=== PATIENT | female | born 1990 | race Caucasian/White ===

== ENCOUNTER 2021-06-26 09:07 | Inpatient (IN) | payer MEDICAID, SELFPAY ==
[2021-06-26 09:07] VITALS: BP 141/98; PULSE 62; RESP 16; TEMP 36.2; O2SAT 100; BMI 22.6
--- NOTE | 2021-06-26 09:28 | EX.ED.DYSGE1 ---
HPI <WARD Huerta - Last Filed: 06/26/21 11:53> History of Present Illness Chief Complaint: Substance Abuse Narrative Narrative: 30-year-old female with history of anxiety, depression, history of substance abuse. Patient states that she would like to be admitted to help get off of fentanyl. Patient has been using fentanyl since November 2020, patient states that she has experimented with meth, however she has been mainly using fentanyl lately. Patient does smoke marijuana intermittently, denies any alcohol use. Patient denies any suicidal, homicidal ideation, patient is here for evaluation. Patient complains of generalized abdominal cramping, muscle aches, nausea, vomiting, diarrhea. Patient states that she has horrific acid reflux secondary to vomiting acid. Patient denies any fevers or chills. Denies any blood in stool or vomit. PFSH <WARD Huerta - Last Filed: 06/26/21 11:53> [facility] Medical History (Updated 07/01/21 @ 07:[address] Gerhard Harris, DO) Fentanyl dependence Hx MRSA infection Home Medications Latuda 20 mg PO DAILY 06/26/21 [History Last Taken Unknown] Allergy/AdvReac Type Severity Reaction Status Date / Time prednisone Allergy Other Verified 06/26/21 13:14 Family History (Updated 06/26/21 @ 14:46 by Bianka Hull NP, MARKSMANSHIP INSTRUCTOR-C) Father COPD (chronic obstructive pulmonary disease) Mental health disorder Mother Mental health disorder Surgical History (Updated 06/26/21 @ 14:47 by Bianka Hull NP, MARKSMANSHIP INSTRUCTOR-C) H/O tubal ligation History of tonsillectomy Social History (Updated 06/26/21 @ 14:47 by Bianka Hull NP, MARKSMANSHIP INSTRUCTOR-C) Smoking Status: Current every day smoker tobacco type: cigarettes alcohol intake: never substance use type: other details: fentanyl ROS <WARD Huerta - Last Filed: 06/26/21 11:53> ROS ED ROS Narrative Constitutional: Negative for fever, weight loss, weakness. Positive for chills Eyes: Negative for vision loss, vision change, double vision ENT: Negative for any sore throat, ear pain, congestion Cardiovascular: Negative for any chest pain, tightness, palpitations, racing heartbeat Respiratory: Negative for any cough, sputum production, hemoptysis, shortness of breath, shortness of breath on exertion, orthopnea Gastrointestinal: Negative for any constipation, blood in stool, blood in vomit. Positive for abdominal pain, nausea vomiting, diarrhea : Negative for any urinary frequency, incontinence, dysuria, retention, blood in urine Muscle skeletal: Negative for any muscle joint pain, stiffness, arthralgias, neck pain, back pain. Positive for generalized malaise Neurological: Negative for any headache, dizziness, syncope, numbness or tingling Skin: Negative for any rashes, lumps, itching, abrasions, lacerations Psychiatric: Negative for any depression, anxiety, stress, suicidal ideation, homicidal ideation Hematologic: Negative for any easy bruising, excessive bruising, easy bleeding Allergies: Negative for any eczema, hives, rash EXAM <WARD Huerta - Last Filed: 06/26/21 11:53> Physical Exam Narrative Exam Narrative: Vital signs reviewed. Patient is alert and oriented x4, patient appears nontoxic, last time patient used was 4 PM yesterday. Patient is cooperative at this time. HEET: Head normocephalic atraumatic, TMs clear bilaterally. Posterior pharynx is clear, dry mucous membranes. Nares clear bilaterally. Neck: Supple with no lymphadenopathy or tenderness. No signs of meningismus, negative jolt sign. Cardiac: Regular rate and rhythm no murmurs gallops or rubs, equal peripheral pulses bilaterally. Respiratory: Lungs clear to auscultation bilaterally. No chest tenderness. Abdomen: Soft, nontender, nondistended. No abdominal bruit or pulsatile masses. No hepatosplenomegaly Extremities: No peripheral edema, no signs of gross trauma or deformity. Active full range of motion of all extremities. Neuro: Cranial nerves II through XII intact, no focal neurological deficits. Skin: Clean dry and intact with no rash, purpura, petechiae, vesicles or pustules. Patient does have multiple red amaro on her face from picking secondary to drug abuse. Backslash flank: No CVA tenderness, no midline spinal tenderness, no deformity. Psych: Normal mood and affect. No SI, HI or acute psychosis. Const Vital Signs: 06/26/21 09:07 06/26/21 11:12 Temperature 97.2 F L Temperature Source Temporal Pulse Rate 62 Respiratory Rate 16 14 Blood Pressure 141/98 H Blood Pressure Mean 112 Pulse Ox 100 Oxygen Delivery Method Room Air Positive cachectic and unkempt General Appearance ED: unkempt and cachectic Nutritional Appearance: cachectic Psych Appearance: unkempt <Dr. Gerhard Harris DO - Last Filed: 07/01/21 07:47> Physical Exam Const Vital Signs: 06/26/21 09:07 06/26/21 11:12 Temperature 97.2 F L Temperature Source Temporal Pulse Rate 62 Respiratory Rate 16 14 Blood Pressure 141/98 H Blood Pressure Mean 112 Pulse Ox 100 Oxygen Delivery Method Room Air MDM <Jf ValenzuelaWARD wilkerson - Last Filed: 06/26/21 11:53> [facility] Narrative Medical decision making narrative: Patient appears well, patient appears nontoxic, vital signs are stable. Patient presents emergency department for admission for opiate dependence. Patient did receive basic laboratory values, patient CBC, chemistries were grossly unremarkable. Patient's urinalysis was unremarkable. Patient did receive IV fluids, IV Zofran x2 as well as a GI cocktail for her acid reflux. I did talk to the hospitalist, the patient be admitted for opiate dependence. Patient remained stable, vital signs are stable. Patient is stable for admission. Lab Data Attestation: I reviewed the patient's lab results. Labs: Laboratory Results - last 24 hr 06/26/21 06/26/21 06/26/21 09:50 09:50 09:50 WBC 5.1 RBC 5.15 Hgb 15.5 H Hct 44.2 MCV 85.8 MCH 30.1 MCHC 35.1 RDW Std Deviation 39.8 RDW Coeff of Leah 12.7 Plt Count 285 MPV 10.6 Immature Gran % (Auto) 0.400 Neut % (Auto) 85.4 H Lymph % (Auto) 12.6 L [place] % (Auto) 1.6 Eos % (Auto) 0.0 Baso % (Auto) 0.0 Absolute Neuts (auto) 4.4 Absolute Lymphs (auto) 0.65 L Nucleated RBC % 0 Sodium 137 Potassium 3.5 Chloride 103 Carbon Dioxide 29.0 Anion Gap 5 BUN 9 Creatinine 0.59 Estim Creat Clear Calc 105.21 Est GFR (MDRD) Af Amer 154 Est GFR (MDRD) Non-Af 127 BUN/Creatinine Ratio 15.3 Glucose 139 H Calcium 9.8 Lipase 80 Urine Color Urine Clarity Urine pH Ur Specific [place] Urine Protein Urine Glucose (UA) Urine Ketones Urine Occult Blood Urine Nitrite Urine Bilirubin Urine Urobilinogen Ur Leukocyte Esterase Urine RBC Urine WBC Ur Squamous Epith Cells Amorphous Sediment Urine Bacteria Urine Mucus Urine Test Urine Opiates Screen Urine Methadone Screen Ur Barbiturates Screen Ur Phencyclidine Scrn Ur Amphetamines Screen MDMA (Ecstasy) Screen U Benzodiazepines Scrn Urine Cocaine Screen U Cannabinoids Screen Ur Drug Screen Comment Ethyl Alcohol < 3.0 06/26/21 06/26/21 11:35 11:35 WBC RBC Hgb Hct MCV MCH MCHC RDW Std Deviation RDW Coeff of Leah Plt Count MPV Immature Gran % (Auto) Neut % (Auto) Lymph % (Auto) [place] % (Auto) Eos % (Auto) Baso % (Auto) Absolute Neuts (auto) Absolute Lymphs (auto) Nucleated RBC % Sodium Potassium Chloride Carbon Dioxide Anion Gap BUN Creatinine Estim Creat Clear Calc Est GFR (MDRD) Af Amer Est GFR (MDRD) Non-Af BUN/Creatinine Ratio Glucose Calcium Lipase Urine Color Yellow Urine Clarity Cloudy Urine pH 8.0 Ur Specific [place] 1.015 Urine Protein Negative Urine Glucose (UA) Normal Urine Ketones 50 H Urine Occult Blood Negative Urine Nitrite Negative Urine Bilirubin Negative Urine Urobilinogen Normal Ur Leukocyte Esterase 25 H Urine RBC 0 SEEN Urine WBC 0-5 SEEN Ur Squamous Epith Cells 0 SEEN Amorphous Sediment 2+ Urine Bacteria 0 SEEN Urine Mucus 0 SEEN Urine Test Negative Urine Opiates Screen NEGATIVE Urine Methadone Screen NEGATIVE Ur Barbiturates Screen NEGATIVE Ur Phencyclidine Scrn NEGATIVE Ur Amphetamines Screen POSITIVE H MDMA (Ecstasy) Screen NEGATIVE U Benzodiazepines Scrn NEGATIVE Urine Cocaine Screen NEGATIVE U Cannabinoids Screen POSITIVE H Ur Drug Screen Comment Ethyl Alcohol <Dr. Gerhard Harris, DO - Last Filed: 07/01/21 07:47> [facility] MDM Narrative Medical decision making narrative: Attending note: Patient seen and evaluated with bead machine operator. I perform my own [id number] evaluation. I agree with the plan of work-up. Presents for detoxification from fentanyl. Has been using daily since November. Prior to that using methamphetamines. She snorts this. Also intermittent marijuana use. Her last use of all 3 was yesterday. Vomiting diarrhea since yesterday. Abdominal cramping. Has not sought help for detox in the past. Denies alcohol use. Denies suicidal homicidal ideations. Exam mild dry mucosal membranes abdomen soft nonsurgical. Patient looking for assistance for detox. Abdominal labs are all normal alcohol negative tox screen pending. She was treated with IV fluids GI cocktail per her request Zofran for nausea. We will plan to discuss with hospitalist service for admission. Abdominal labs are on normal. Tox urine positive for meth and THC. Alcohol negative. Patient admitted to hospital service. Lab Data Labs: Laboratory Results - last 24 hr 06/26/21 06/26/21 06/26/21 09:50 09:50 09:50 WBC 5.1 RBC 5.15 Hgb 15.5 H Hct 44.2 MCV 85.8 MCH 30.1 MCHC 35.1 RDW Std Deviation 39.8 RDW Coeff of Leah 12.7 Plt Count 285 MPV 10.6 Immature Gran % (Auto) 0.400 Neut % (Auto) 85.4 H Lymph % (Auto) 12.6 L [place] % (Auto) 1.6 Eos % (Auto) 0.0 Baso % (Auto) 0.0 Absolute Neuts (auto) 4.4 Absolute Lymphs (auto) 0.65 L Nucleated RBC % 0 Sodium 137 Potassium 3.5 Chloride 103 Carbon Dioxide 29.0 Anion Gap 5 BUN 9 Creatinine 0.59 Estim Creat Clear Calc 105.21 Est GFR (MDRD) Af Amer 154 Est GFR (MDRD) Non-Af 127 BUN/Creatinine Ratio 15.3 Glucose 139 H Calcium 9.8 Lipase 80 Urine Color Urine Clarity Urine pH Ur Specific [place] Urine Protein Urine Glucose (UA) Urine Ketones Urine Occult Blood Urine Nitrite Urine Bilirubin Urine Urobilinogen Ur Leukocyte Esterase Urine RBC Urine WBC Ur Squamous Epith Cells Amorphous Sediment Urine Bacteria Urine Mucus Urine Test Urine Opiates Screen Urine Methadone Screen Ur Barbiturates Screen Ur Phencyclidine Scrn Ur Amphetamines Screen MDMA (Ecstasy) Screen U Benzodiazepines Scrn Urine Cocaine Screen U Cannabinoids Screen Ur Drug Screen Comment Ethyl Alcohol < 3.0 06/26/21 06/26/21 11:35 11:35 WBC RBC Hgb Hct MCV MCH MCHC RDW Std Deviation RDW Coeff of Leah Plt Count MPV Immature Gran % (Auto) Neut % (Auto) Lymph % (Auto) [place] % (Auto) Eos % (Auto) Baso % (Auto) Absolute Neuts (auto) Absolute Lymphs (auto) Nucleated RBC % Sodium Potassium Chloride Carbon Dioxide Anion Gap BUN Creatinine Estim Creat Clear Calc Est GFR (MDRD) Af Amer Est GFR (MDRD) Non-Af BUN/Creatinine Ratio Glucose Calcium Lipase Urine Color Yellow Urine Clarity Cloudy Urine pH 8.0 Ur Specific [place] 1.015 Urine Protein Negative Urine Glucose (UA) Normal Urine Ketones 50 H Urine Occult Blood Negative Urine Nitrite Negative Urine Bilirubin Negative Urine Urobilinogen Normal Ur Leukocyte Esterase 25 H Urine RBC 0 SEEN Urine WBC 0-5 SEEN Ur Squamous Epith Cells 0 SEEN Amorphous Sediment 2+ Urine Bacteria 0 SEEN Urine Mucus 0 SEEN Urine Test Negative Urine Opiates Screen NEGATIVE Urine Methadone Screen NEGATIVE Ur Barbiturates Screen NEGATIVE Ur Phencyclidine Scrn NEGATIVE Ur Amphetamines Screen POSITIVE H MDMA (Ecstasy) Screen NEGATIVE U Benzodiazepines Scrn NEGATIVE Urine Cocaine Screen NEGATIVE U Cannabinoids Screen POSITIVE H Ur Drug Screen Comment Ethyl Alcohol Discharge Plan Dx/Rx/DC Orders Clinical Impression: Substance abuse, Nausea & vomiting Disposition Disposition: Acute Care Hospital [facility]
[2021-06-26] MEDS: 0.9% Normal Saline 1,000 ML 1000 ML IV (09:50)
[2021-06-26 09:58] LABS: Absolute Lymphocyte Count 0.65 X10^3/uL (0.83-4.51); Absolute Neutrophil Count 4.4 X10^3/uL (2.0-7.7); Hematocrit 44.2 % (37-47); Hemoglobin 15.5 g/dL (12.0-15.0); Lymphocyte # 0.65 X10^3/ul (0.83-4.51); Lymphocyte % 12.6 % (19-41); Mean Corp Hgb Conc 35.1 g/dL (32-36); Mean Corpuscular Hgb 30.1 pg (27.0-32.0); Mean Corpuscular Volume 85.8 fL (81-99); Mean Platelet Vol. 10.6 fl (6.2-12.0); Monocyte# 0.08 X10^3/uL; Monocyte% 1.6 % (0-10); NRBC Flagged by Analyzer 0 % (0-5); Neutrophil # 4.39 X10^3/uL (2.7-7.7); Neutrophil % 85.4 % (47-70); Platelet Count 285 K/mm3 (150-450); RBC Distribution Width CV 12.7 % (11.6-14.6); RBC Distribution Width SD 39.8 fl (35.1-43.9); Red Blood Count 5.15 M/mm3 (4.2-5.4); White Blood Count 5.1 K/mm3 (4.4-11.0)
[2021-06-26] MEDS: Mag Hydrox/Al Hydrox/Simeth 30 ML UDC PO ×2 (09:58→13:54)
[2021-06-26] MEDS: Dicyclomine 20 MG/2 ML Vial IM (09:59)
[2021-06-26] MEDS: Ondansetron 4 MG/2 ML Vial IV ×2 (09:59→11:29)
[2021-06-26 10:09] LABS: Anion Gap 5 (5-15); BUN 9 mg/dL (7-18); BUN/Creat Ratio 15.3 RATIO (10-20); Calcium,Total 9.8 mg/dL (8.5-10.1); Chloride 103 mmol/L (98-107); Creatinine, Serum 0.59 mg/dL (0.55-1.02); EST Glomerular Filtration Rate 127 mL/min (>60); Est Glom Filt Rate - Afr Amer 154 mL/min (>60); Estimated Creatinine Clearance 105.21 ml/min; Glucose 139 mg/dL (74-106); Lipase 80 U/L (73-393); Potassium 3.5 mmol/L (3.5-5.1); Sodium Level 137 mmol/L (136-145)
[2021-06-26 10:45] LABS: Alcohol, Blood (Medical)-Serum < 3.0 mg/dL
--- NOTE | 2021-06-26 11:00 | CM.ED ---
[place] Note Referral Source: Case Find Referral Reason: IZAIAH COLEMAN met with patient. She reports that she is at the ED for detox and wants a 30 day program. Patient emeli that she wants to be clean. Patient said that she was wanting to be clean. Patient reports using fentanyl, 1/2 gram a day, with last use being 4pm yesterday. Patient was previously linked with [facility] in [place] for AOD but is currently living in [place]. Patient was educated on the rues of the program including no phones, visitors and belongings locked. Patient verbalized understanding. SW called Devendra, Addiction Therapist and updated her regarding patient. Plan: Detox [facility]
[2021-06-26 11:12] VITALS: RESP 14
--- NOTE | 2021-06-26 11:34 | NURSING ---
HOSPITALIST FOR DR WHITE
[2021-06-26 11:43] LABS: Bacteria 0 SEEN /hpf (None Seen); Mucous, Urine 0 SEEN /hpf (<or=2+); Red Blood Cells-Urine 0 SEEN /hpf (0-5); Squamous Epithelial Cells - UA 0 SEEN /hpf (5-10)
[2021-06-26 11:49] LABS: Color, Urine Yellow (Yellow); Glucose, Dipstick Normal (Normal); Ketone-Dipstick 50 mg/dl (Negative); Leukocyte Esterase-Dipstick 25 /ul (Negative); Nitrite-Dipstick Negative (Negative); Occult Blood-Urine Negative /ul (Negative); Protein-Dipstick Negative (Negative); Specific Gravity, Urine 1.015 (1.002-1.030); Urine Bilirubin Dipstick Negative (Negative); Urine Clarity Cloudy (Clear); Urine Urobilinogen Normal (Normal)
[2021-06-26 11:54] LABS: Amorphous Sediment 2+; White Blood Cells 0-5 SEEN /hpf (0-5)
[2021-06-26 11:55] LABS: Internal QC Validated? YES +Cl - CLEAR BKGD; Pregnancy, Urine Negative Negative
--- NOTE | 2021-06-26 12:00 | NURSING ---
MED SURG [facility]
[2021-06-26 12:17] LABS: Amphetamine Urine VISTA POSITIVE (<1000 ng/mL); Barbiturate Urine VISTA NEGATIVE (< 200 ng/mL); Benzodiazepine Urine VISTA NEGATIVE (< 200 ng/mL); Cocaine Urine VISTA NEGATIVE (< 300 ng/mL); Ecstacy Urine VISTA NEGATIVE (< 500 ng/mL); Methadone Urine VISTA NEGATIVE (< 300 ng/mL); PCP Urine VISTA NEGATIVE (< 25 ng/mL); THC Urine VISTA POSITIVE (< 50 ng/mL); Vista UDS pH Range 7
[2021-06-26 12:56] VITALS: BP 128/64; PULSE 55; RESP 18; TEMP 37.1; O2SAT 98
[2021-06-26 13:13] VITALS: BP 87/53; PULSE 59; RESP 16; TEMP 36.6; O2SAT 98; BMI 21.7
--- NOTE | 2021-06-26 13:26 | NURSING ---
talk with Primary RN w/ clinical social work therapist. Suicide precautions initiated.
[2021-06-26] MEDS: Dicyclomine 10 MG Capsule 20 MG PO ×2 (13:54→21:31)
[2021-06-26] MEDS: Ondansetron 8 MG Tablet PO (13:54)
[2021-06-26] MEDS: Gabapentin 300 MG Capsule PO (13:55)
[2021-06-26] MEDS: Buprenorphine HCl 2 MG TAB.SUBL SL ×2 (13:55→21:31)
[2021-06-26] MEDS: Calcium Carbonate 500 MG Tablet 1000 MG PO (13:59)
--- NOTE | 2021-06-26 14:42 | PCM.HP.STD ---
Documented by User: Bianka Hull NP, INSTALLMENT ACCOUNT CHECKER-C 06/26/21 14:52 HPI - General General Date of Admission: 06/26/21 HPI Narrative SANGEETHA BUTLER, is a 30 F who presents to the emergency room requesting detox from fentanyl. Patient states she has been using fentanyl since November. She states she has experimented with other drugs however does not use any other drug consistently. She denies alcohol use. She reports her last fentanyl use was last evening around 4 PM. She reports extreme abdominal cramping and pain as well as nausea and vomiting. She states she feels dehydrated. Nursing reports during assessment patient stated her pain was so bad that she wanted to kill herself. Extensive discussion had with patient and she denies active suicidal or homicidal ideations. She states she has been struggling to obtain sobriety and previously had thoughts of self-harm by overdosing on fentanyl however denies active suicidal thoughts or ideations. Patient states she has been in inpatient psychiatric facility approximately 10 years ago. She has a history of bipolar disorder. She is compliant with her home medication for bipolar disorder. She reports tobacco use. Denies other medical history. [facility] Medical History (Updated 06/26/21 @ 14:49 by Bianka Hull NP, INSTALLMENT ACCOUNT CHECKER-C) Fentanyl dependence Hx MRSA infection Home Medications lurasidone [Latuda] 20 mg PO DAILY 06/26/21 [History Last Taken Unknown] Allergy/AdvReac Type Severity Reaction Status Date / Time prednisone Allergy Other Verified 06/26/21 13:14 Family History (Updated 06/26/21 @ 14:46 by Bianka Hull NP, INSTALLMENT ACCOUNT CHECKER-C) Father COPD (chronic obstructive pulmonary disease) Mental health disorder Mother Mental health disorder Surgical History (Updated 06/26/21 @ 14:47 by Bianka Hull NP, INSTALLMENT ACCOUNT CHECKER-C) H/O tubal ligation History of tonsillectomy Social History (Updated 06/26/21 @ 14:47 by Bianka Hull NP, INSTALLMENT ACCOUNT CHECKER-C) Smoking Status: Current every day smoker tobacco type: cigarettes alcohol intake: never substance use type: other details: fentanyl ROS Constitutional Constitutional: Reports chills; Denies change in weight, fatigue, fever(s) or weakness Cardiovascular Cardiovascular: Denies chest pain, edema, lightheadedness, palpitations or syncope Respiratory/Chest Respiratory/Chest: Denies cough, dyspnea, productive cough, shortness of breath at rest, shortness of breath with exertion or wheezing Gastrointestinal Gastrointestinal: Reports abdominal pain, nausea and vomiting; Denies constipation or diarrhea Genitourinary Genitourinary: Denies burning urination, difficulty urinating, dysuria, hematuria, urinary frequency, urinary incontinence or urinary urgency Musculoskeletal Musculoskeletal: Denies back pain, joint pain or muscle weakness Integumentary Integumentary: Denies erythema, lesions, rash or wounds Neurologic Neurologic: Denies abnormal speech, confusion, dizziness, focal weakness, numbness, paresthesias, seizure-like activity or syncope Psychiatric Psychiatric: Reports anxiety and depression; Denies homicidal ideation or suicidal ideation Hematologic/Lymphatic Hematologic/Lymphatic: Denies anemia, easy bleeding or easy bruising Allergic/Immunologic Allergic/Immunologic: Denies hives or asthma Vital Signs Vital Signs Vital Signs: 06/26/21 09:07 06/26/21 11:12 06/26/21 12:56 Temperature 97.2 F L 98.8 F Temperature Source Temporal Temporal Pulse Rate 62 55 L Respiratory Rate 16 14 18 Blood Pressure 141/98 H 128/64 H Blood Pressure Mean 112 85 Blood Pressure Source Blood Pressure Position Blood Pressure Location Pulse Ox 100 98 Oxygen Delivery Method Room Air Room Air 06/26/21 13:13 Temperature 97.9 F Temperature Source Oral Pulse Rate 59 L Respiratory Rate 16 Blood Pressure 87/53 L Blood Pressure Mean 64 Blood Pressure Source Monitor Blood Pressure Position Semi-Fowlers Blood Pressure Location Left Arm Pulse Ox 98 Oxygen Delivery Method Room Air Weight Weight: 114 lb 11.2 oz Body Mass Index (BMI) 21.7 Physical Exam Const alert and oriented x3 Constitutional Narrative: Actively vomiting, appears uncomfortable Orientation / Consciousness: awake, oriented to person, oriented to place and oriented to time HEENT normocephalic Mouth: dry mucous membranes Eyes PERRL, EOMs intact bilaterally and conjunctivae normal Neck no lymphadenopathy Resp normal respiratory effort and clear to auscultation bilaterally Cardio regular rate, regular rhythm and no murmurs Peripheral Pulses: pulses 2+ throughout GI normal to inspection, nondistended, normoactive bowel sounds, non-tender and non-distended Extremity normal to inspection Skin no rashes or lesions noted Lesions: no lesions Rashes: no rashes Trauma: no lacerations or abrasions Neuro CN's II-XII intact bilaterally, no focal motor deficits, no sensory deficits noted and deep tendon reflexes 2+ bilaterally Psych mental status grossly normal and affect normal Results Lab / Micro Data Result Diagrams: 06/26/21 09:50 06/26/21 09:50 Labs: Laboratory Results - last 24 hr 06/26/21 09:50: WBC 5.1, RBC 5.15, Hgb 15.5 H, Hct 44.2, MCV 85.8, MCH 30.1, MCHC 35.1, RDW Std Deviation 39.8, RDW Coeff of Leah 12.7, Plt Count 285, MPV 10.6, Immature Gran % (Auto) 0.400, Neut % (Auto) 85.4 H, Lymph % (Auto) 12.6 L, [place] % (Auto) 1.6, Eos % (Auto) 0.0, Baso % (Auto) 0.0, Absolute Neuts (auto) 4.4, Absolute Lymphs (auto) 0.65 L, Nucleated RBC % 0 06/26/21 09:50: Sodium 137, Potassium 3.5, Chloride 103, Carbon Dioxide 29.0, Anion Gap 5, BUN 9, Creatinine 0.59, Estim Creat Clear Calc 105.21, Est GFR (MDRD) Af Amer 154, Est GFR (MDRD) Non-Af 127, BUN/Creatinine Ratio 15.3, Glucose 139 H, Calcium 9.8, Lipase 80 06/26/21 09:50: Ethyl Alcohol < 3.0 06/26/21 11:35: Urine Opiates Screen NEGATIVE, Urine Methadone Screen NEGATIVE, Ur Barbiturates Screen NEGATIVE, Ur Phencyclidine Scrn NEGATIVE, Ur Amphetamines Screen POSITIVE H, MDMA (Ecstasy) Screen NEGATIVE, U Benzodiazepines Scrn NEGATIVE, Urine Cocaine Screen NEGATIVE, U Cannabinoids Screen POSITIVE H, Ur Drug Screen Comment 06/26/21 11:35: Urine Color Yellow, Urine Clarity Cloudy, Urine pH 8.0, Ur Specific [place] 1.015, Urine Protein Negative, Urine Glucose (UA) Normal, Urine Ketones 50 H, Urine Occult Blood Negative, Urine Nitrite Negative, Urine Bilirubin Negative, Urine Urobilinogen Normal, Ur Leukocyte Esterase 25 H, Urine RBC 0 SEEN, Urine WBC 0-5 SEEN, Ur Squamous Epith Cells 0 SEEN, Amorphous Sediment 2+, Urine Bacteria 0 SEEN, Urine Mucus 0 SEEN, Urine Test Negative Assessment & Plan Assessment/Plan (1) Fentanyl dependence: PLAN: 1. Opioid withdrawal-history of polysubstance and fentanyl use. Medical stabilization per protocol. Subutex taper. As needed regimen for somatic complaints. Addiction medicine consult. 2. Depression/anxiety/bipolar disorder-on Latuda. Denies active suicidal thoughts or ideations. 3. Tobacco dependence-encouraged cessation. Nicotine replacement patch. DVT prophylaxis-not indicated, low risk This patient was seen by Bianka Hull NP-C under the supervision of Dr. Gagnon. Time spent examining patient, reviewing data and subsequent management of care: 16 Minutes Documented by User: Dr. Josh Gagnon DO 06/26/21 16:31 HPI - General General Date of Admission: 06/26/21 [facility] Medical History (Updated 06/26/21 @ 14:49 by Bianka Hull NP, INSTALLMENT ACCOUNT CHECKER-C) Fentanyl dependence Hx MRSA infection Home Medications lurasidone [Latuda] 20 mg PO DAILY 06/26/21 [History Last Taken Unknown] Allergy/AdvReac Type Severity Reaction Status Date / Time prednisone Allergy Other Verified 06/26/21 13:14 Family History (Updated 06/26/21 @ 14:46 by Bianka Hull NP, INSTALLMENT ACCOUNT CHECKER-C) Father COPD (chronic obstructive pulmonary disease) Mental health disorder Mother Mental health disorder Surgical History (Updated 06/26/21 @ 14:47 by Bianka Hull NP, INSTALLMENT ACCOUNT CHECKER-C) H/O tubal ligation History of tonsillectomy Social History (Updated 06/26/21 @ 14:47 by Bianka Hull NP, INSTALLMENT ACCOUNT CHECKER-C) Smoking Status: Current every day smoker tobacco type: cigarettes alcohol intake: never substance use type: other details: fentanyl Results Lab / Micro Data Result Diagrams: 06/26/21 09:50 06/26/21 09:50 Charges/Coding Addendum Addendum: Was seen and examined independently of Bianka Hull today, she came to the ER today requesting services for detox from fentanyl. Patient states her last use was yesterday, she snorts the fentanyl she does not inject it. Patient has never gone through detox services before. Patient complains of nausea, malaise, and nervousness. Patient also occasionally uses methamphetamines-she snorts these also. On examination she appeared nervous and uncomfortable, she complains of nausea. Vital signs as documented. Skin warm and dry and without overt rashes. Neck without JVD, thyroid appears normal, trachea is midline, neck is supple. Lungs clear, normal air movement was noted. Heart exam notable for regular rhythm, normal sounds and absence of murmurs, rubs or gallops. Abdomen unremarkable and without evidence of organomegaly, masses, or abdominal aortic enlargement, bowel sounds are present in all 4 quadrants, no abdominal tenderness was noted. Extremities nonedematous, no cyanosis was noted, no clubbing was noted. Neuro: Cranial nerves II through XII are grossly intact, no focal motor deficits were noted, sensation to light touch and pinprick is intact, motor exam 5/5 throughout. Psych: Patient appears nervous and unwell Impression: #1 acute opiate withdrawal-patient will be admitted to [facility] 3, she will be placed on medications per the opiate withdrawal protocol, she will meet with addiction child protective services social worker tomorrow. #2 methamphetamine abuse-supportive care will be offered for the patient #3 bipolar disorder-patient will be kept on her Latuda I have reviewed Bianka Hull's history and physical including her medical assessment and plan of care and with the above additions endorse it. Total clinical time spent by myself addressing the patient's issues, reviewing the patient's medical record, and communicating with caregivers: 35 minutes Visit Charges Inpatient E&M: [id number] Init Hosp L2
[2021-06-26] MEDS: Metoclopramide 10 MG/2 ML Vial 5 MG IV (15:02)
[2021-06-26] MEDS: proCHLORPERazine 10 MG/2 ML Vial IV (15:02)
[2021-06-26] MEDS: 0.9% Saline Lock 10 ML Syringe IV (15:08)
[2021-06-26 17:50] VITALS: BP 114/69; PULSE 66; RESP 14; TEMP 37.1; O2SAT 100
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
[2021-06-26 21:20] VITALS: BP 119/71; PULSE 99; RESP 16; TEMP 37.1; O2SAT 100
[2021-06-26] MEDS: hydrOXYzine PAM 25 MG Capsule 50 MG PO (21:31)
[2021-06-26] MEDS: traZODone 100 MG Tablet PO (21:31)
[2021-06-26] MEDS: Methocarbamol 750 MG Tablet 1500 MG PO (21:31)
[2021-06-27 01:42] VITALS: BP 111/72; PULSE 62; RESP 16; TEMP 37.4; O2SAT 99
[2021-06-27] MEDS: cloNIDine HCl 0.1 MG Tablet PO ×2 (01:51→20:44)
[2021-06-27] MEDS: Ibuprofen 600 MG Tablet PO ×3 (01:51→20:44)
[2021-06-27] MEDS: Ondansetron 8 MG Tablet PO ×2 (01:51→10:24)
[2021-06-27] MEDS: Gabapentin 300 MG Capsule PO ×3 (01:52→20:44)
[2021-06-27 05:21] VITALS: BP 113/65; PULSE 72; RESP 16; TEMP 36.8; O2SAT 97
[2021-06-27] MEDS: Buprenorphine HCl 2 MG TAB.SUBL SL ×3 (05:30→22:04)
[2021-06-27] MEDS: Methocarbamol 750 MG Tablet 1500 MG PO ×3 (05:30→20:44)
[2021-06-27] MEDS: hydrOXYzine PAM 25 MG Capsule 50 MG PO (05:30)
[2021-06-27] MEDS: Dicyclomine 10 MG Capsule 20 MG PO ×2 (05:30→14:08)
[2021-06-27 09:15] VITALS: BP 108/73; PULSE 54; RESP 16; TEMP 37.2; O2SAT 99
[2021-06-27] MEDS: LURASIDONE HCL 20 MG TABLET PO (10:24)
--- NOTE | 2021-06-27 13:32 | ADDICTION ---
This va underwriter met with PT to conduct ASAM, MSE, DUDIT assessments and to plan for d/c. PT A+Ox4 and participated actively. All assessments completed, and placed in PT's chart. PT plans to f/u with individual counselor at [facility] for follow-up counseling services. PT did not indicate a need for transportation post d/c from [facility].
--- NOTE | 2021-06-27 13:39 | PCM.PN.HOSP ---
Documented by User: Bianka Hull NP, CONTROL SYSTEMS ENGINEER-C 06/27/21 13:55 Subjective Subjective Patient seen and examined. Resting in bed. Abdominal pain, nausea and vomiting improved. States she feels cold. Denies other symptoms or complaints. Denies suicidal thoughts. Objective Data Objective Data Vital Signs: Vital Signs Temp Pulse Resp BP Pulse Ox 99.0 F 54 L 16 108/73 99 06/27/21 09:15 06/27/21 09:15 06/27/21 09:15 06/27/21 09:15 06/27/21 09:15 Oxygen Delivery Method Room Air Weight: 114 lb 11.2 oz Body Mass Index (BMI) 21.7 Intake & Output: Intake and Output for Last 24 Hours 06/25/21 06/26/21 06/27/21 23:59 23:59 23:59 Intake Total 1300 / 1300 1500 / 1500 Balance 1300 / 1300 1500 / 1500 Lab / Micro Data Result Diagrams: 06/26/21 09:50 06/26/21 09:50 Physical Exam Const alert, oriented x3 and no apparent distress Orientation / Consciousness: awake, oriented to person, oriented to place and oriented to time HEENT normocephalic and moist oral mucous membranes Eyes PERRL, EOMs intact bilaterally and conjunctivae normal Neck no lymphadenopathy Resp normal respiratory effort and clear to auscultation bilaterally Cardio regular rate, regular rhythm and no murmurs Peripheral Pulses: pulses 2+ throughout GI normal to inspection, nondistended, normoactive bowel sounds, non-tender and non-distended Extremity normal to inspection Skin no rashes or lesions noted Lesions: no lesions Rashes: no rashes Trauma: no lacerations or abrasions Neuro CN's II-XII intact bilaterally, no focal motor deficits, no sensory deficits noted and deep tendon reflexes 2+ bilaterally Psych mental status grossly normal Mood & Affect: flat affect Assessment & Plan Assessment/Plan (1) Fentanyl dependence: PLAN: 1. Opioid withdrawal-history of polysubstance and fentanyl use. Medical stabilization per protocol. Subutex taper. As needed regimen for somatic complaints. Addiction medicine consult. 2. Depression/anxiety/bipolar disorder-on Latuda. Denies active suicidal thoughts or ideations. 3. Tobacco dependence-encouraged cessation. Nicotine replacement patch. DVT prophylaxis-not indicated, low risk This patient was seen by Bianka Kurtis, CONTROL SYSTEMS ENGINEER-C under the supervision of Dr. Gagnon. Time spent examining patient, reviewing data and subsequent management of care: 10 Minutes Documented by User: Dr. Josh Gagnon, 06/27/21 16:50 Objective Data Lab / Micro Data Result Diagrams: 06/26/21 09:50 06/26/21 09:50 Charges/Coding Addendum Addendum: Patient was seen and examined independently of Bianka Hull, she appears sleepy, she does not have any complaints to this examiner. On examination she appeared older than her stated age she does not appear to be in any distress. Vital signs as documented. Skin warm and dry and without overt rashes. Neck without JVD, thyroid appears normal, trachea is midline, neck is supple. Lungs clear, normal air movement was noted. Heart exam notable for regular rhythm, normal sounds and absence of murmurs, rubs or gallops. Abdomen unremarkable and without evidence of organomegaly, masses, or abdominal aortic enlargement, bowel sounds are present in all 4 quadrants, no abdominal tenderness was noted. Extremities nonedematous, no cyanosis was noted, no clubbing was noted. Neuro: Cranial nerves II through XII are grossly intact, no focal motor deficits were noted, sensation to light touch and pinprick is intact, motor exam 5/5 throughout. Psych: She does not appear anxious, she appears sleepy #1 acute opiate withdrawal-continue patient's current medications #2 methamphetamine abuse-supportive care will be offered for the patient #3 bipolar disorder-patient will be kept on her Latuda I have reviewed Bianka Hull's progress note including her medical assessment and plan of care and with the above additions endorse it. Total clinical time spent by myself addressing the patient's medical issues, reviewing the patient's medical data, and collaborating with the patient's care team: 20 minutes Visit Charges Inpatient E&M: [id number] Subs Hosp L2
[2021-06-27 14:00] VITALS: BP 98/65; PULSE 69; RESP 16; TEMP 37.4; O2SAT 99
[2021-06-27 20:35] VITALS: BP 109/68; PULSE 98; RESP 16; TEMP 37.3; O2SAT 98
[2021-06-27] MEDS: traZODone 100 MG Tablet PO (20:45)
[2021-06-28] MEDS: hydrOXYzine PAM 25 MG Capsule 50 MG PO ×2 (00:09→22:15)
[2021-06-28 03:29] VITALS: BP 95/60; PULSE 68; RESP 16; TEMP 36.7; O2SAT 98
[2021-06-28] MEDS: Buprenorphine HCl 2 MG TAB.SUBL SL ×2 (05:24→13:52)
[2021-06-28 08:30] VITALS: BP 91/62; PULSE 57; RESP 16; TEMP 36.9; O2SAT 99
[2021-06-28] MEDS: LURASIDONE HCL 20 MG TABLET PO (09:32)
--- NOTE | 2021-06-28 09:56 | PN.HOSP_ITS ---
Documented by User: Bianka Hull NP, SPINNING OPERATOR-C 06/28/21 10:00 Subjective Subjective Patient seen and examined. Reports abdominal cramping and nausea. No emesis. Reports general malaise. Objective Data Objective Data Vital Signs: Vital Signs Temp Pulse Resp BP Pulse Ox 98.5 F 57 L 16 91/62 99 06/28/21 08:30 06/28/21 08:30 06/28/21 08:30 06/28/21 08:30 06/28/21 08:30 Oxygen Delivery Method Room Air Weight: 114 lb 11.2 oz Body Mass Index (BMI) 21.7 Intake & Output: Intake and Output for Last 24 Hours 06/26/21 06/27/21 06/28/21 23:59 23:59 23:59 Intake Total 1300 / 1300 2000 / 2500 1000 / 1000 Balance 1300 / 1300 2000 / 2500 1000 / 1000 Lab / Micro Data Result Diagrams: 06/26/21 09:50 06/26/21 09:50 Physical Exam Const alert, oriented x3 and no apparent distress Orientation / Consciousness: awake, oriented to person, oriented to place and oriented to time HEENT normocephalic and moist oral mucous membranes Eyes PERRL, EOMs intact bilaterally and conjunctivae normal Neck no lymphadenopathy Resp normal respiratory effort and clear to auscultation bilaterally Cardio regular rate, regular rhythm and no murmurs Peripheral Pulses: pulses 2+ throughout GI normal to inspection, nondistended, normoactive bowel sounds, non-tender and non-distended Extremity normal to inspection Skin no rashes or lesions noted Lesions: no lesions Rashes: no rashes Trauma: no lacerations or abrasions Neuro CN's II-XII intact bilaterally, no focal motor deficits, no sensory deficits noted and deep tendon reflexes 2+ bilaterally Psych mental status grossly normal and affect normal Assessment & Plan Assessment/Plan (1) Substance abuse: PLAN: 1. Opioid withdrawal-history of polysubstance and fentanyl use. Medical stabilization per protocol. Subutex taper. As needed regimen for s omatic complaints. Addiction medicine consulted. 2. Depression/anxiety/bipolar disorder-on Latuda. Denies active suicidal thoughts or ideations. Outpatient psychiatric/counseling follow-up. 3. Tobacco dependence-encouraged cessation. Nicotine replacement patch. DVT prophylaxis-not indicated, low risk This patient was seen by Bianka Kurtis, SPINNING OPERATOR-C under the supervision of Dr. Gagnon. Time spent examining patient, reviewing data and subsequent management of care: 10 Minutes Documented by User: Dr. Josh Gagnon, 06/28/21 14:34 Objective Data Lab / Micro Data Result Diagrams: 06/26/21 09:50 06/26/21 09:50 Charges/Coding Addendum Addendum: Patient was seen and examined today, she is more alert, she does complain of some nausea today. Patient states she is going to be doing inpatient detox services. On examination she appears older than her stated age, she does not appear to be in any distress. Vital signs as documented. Skin warm and dry and without overt rashes. Neck without JVD, thyroid appears normal, trachea is midline, neck is supple. Lungs clear, normal air movement was noted. Heart exam notable for regular rhythm, normal sounds and absence of murmurs, rubs or gallops. Abdomen unremarkable and without evidence of organomegaly, masses, or abdominal aortic enlargement, bowel sounds are present in all 4 quadrants, no abdominal tend erness was noted. Extremities nonedematous, no cyanosis was noted, no clubbing was noted. Neuro: Cranial nerves II through XII are grossly intact, no focal motor deficits were noted, sensation to light touch and pinprick is intact, motor exam 5/5 throughout. Psych: Patient is alert and oriented x3, she does not appear anxious or depressed, she does not appear agitated. #1 acute opiate withdrawal-continue patient's current medications #2 methamphetamine abuse-supportive care will be offered for the patient #3 bipolar disorder-patient will be kept on her Latuda I have reviewed Bianka Hull's progress note including her medical assessment and plan of care and with the above additions endorse it. Total clinical time spent by myself addressing the patient's issues, reviewing the pat ient's medical record, and collaborating with the patient's care team: 20 minutes Visit Charges Inpatient E&M: [id number] Subs Hosp L2
[2021-06-28] MEDS: Dicyclomine 10 MG Capsule 20 MG PO (10:44)
[2021-06-28] MEDS: proMETHazine 25 MG Tablet 12.5 MG PO (10:47)
[2021-06-28 14:30] VITALS: BP 91/45; PULSE 61; RESP 16; TEMP 36.9; O2SAT 98
[2021-06-28] MEDS: traZODone 100 MG Tablet PO (20:08)
[2021-06-28 20:30] VITALS: BP 97/60; PULSE 62; RESP 15; TEMP 36.6; O2SAT 98
[2021-06-28] MEDS: Methocarbamol 750 MG Tablet 1500 MG PO (22:05)
[2021-06-28] MEDS: Gabapentin 300 MG Capsule PO (23:39)
[2021-06-29] MEDS: Buprenorphine HCl 2 MG TAB.SUBL SL (02:21)
[2021-06-29 02:30] VITALS: BP 99/59; PULSE 59; RESP 16; TEMP 37; O2SAT 98
[2021-06-29 09:24] VITALS: BP 90/60; PULSE 107; RESP 18; TEMP 36.5; O2SAT 97
[2021-06-29] MEDS: LURASIDONE HCL 20 MG TABLET PO (09:28)
--- NOTE | 2021-06-29 10:45 | PCM.DC ---
Discharge Instructions Diet Discharge Diet: No restrictions Activity Discharge Activity: Return to Normal Activity Follow Up Care Test Results: Test results from this visit will be discussed in further detail at your follow-up appointment, if applicable. Discharge Plan Admission Admit Date/Time: 06/26/21 11:38 Primary Reason for Your Visit: Opioid withdrawal Attending Provider: Josh Gagnon Primary Care Provider: Care Physician,No Primary Discharge Orders/Prescriptions Prescriptions: Continued Latuda 20 mg tablet 20 mg PO DAILY RF: 0 Referrals / Follow Up: Care Physician,No Primary [Primary Care Provider] - In 1 Week Disposition Disposition (needs filled in before D/C Order can be placed): Home, Self Care
--- NOTE | 2021-06-29 10:51 | DS.PCM_ITS ---
Documented by User: Bianka Hull NP, DROP WIRE BUILDER-C 06/29/21 10:54 Providers Date of Admission: 06/26/21 Date of Discharge: 06/29/21 Primary Care Physician: No Primary Care Phys Reason For Visit: OPIOID WITHDRAWAL Diagnosis Discharge Diagnosis (1) Substance abuse: Status: Acute Code(s): F19.10 - Other psychoactive substance abuse, uncomplicated Medications at Discharge Home Medications Latuda 20 mg PO DAILY 06/26/21 Hospital Course Operations None Procedures None Summary of Care Provided Hospital Course: Patient is a 30-year-old female admitted 06/26/2021 requesting detox from fentanyl. 1. Opioid withdrawal-history of polysubstance and fentanyl use. Medical stabilization per protocol. Completed Subutex taper. Addiction medicine consulted during admission. Continue outpatient follow-up. 2. Depression/anxiety/bipolar disorder-on Latuda. Denies active suicidal thoughts or ideations. Outpatient psychiatric/counseling follow-up. 3. Tobacco dependence-encouraged cessation. Physical Exam Const alert, oriented x3 and no apparent distress Orientation / Consciousness: awake, oriented to person, oriented to place and oriented to time HEENT normocephalic and moist oral mucous membranes Eyes PERRL, EOMs intact bilaterally and conjunctivae normal Neck no lymphadenopathy Resp normal respiratory effort and clear to auscultation bilaterally Cardio regular rate, regular rhythm and no murmurs Peripheral Pulses: pulses 2+ throughout GI normal to inspection, nondistended, normoactive bowel sounds, non-tender and non-distended Extremity normal to inspection Skin no rashes or lesions noted Lesions: no lesions Rashes: no rashes Trauma: no lacerations or abrasions Neuro CN's II-XII intact bilaterally, no focal motor deficits, no sensory deficits noted and deep tendon reflexes 2+ bilaterally Psych mental status grossly normal, flat affect Patient seen and examined prior to discharge. Physical assessment as noted above. Patient is stable for discharge with follow up recommendations as noted above. This patient was seen by EMILY BarnesC under the supervision of Dr. Gagnon. Time spent examining patient, reviewing data and subsequent management of care: 15 Minutes Weight / BMI Weight Weight: 114 lb 11.2 oz Body Mass Index (BMI) 21.7 ABG / Lab / Microbiology Data Result Diagrams: 06/26/21 09:50 06/26/21 09:50 D/C Instructions Discharge Diet: No restrictions Meaningful Use Info Meaningful Use Diagnoses (Choose all that apply): None applicable Discharge Plan Admission Admit Date/Time: 06/26/21 11:38 Primary Reason for Your Visit: Opioid withdrawal Attending Provider: Josh Gagnon Primary Care Provider: Rossana Physician,No Primary Instructions Forms: Work / School Excuse Discharge Orders/Prescriptions Prescriptions: Continued Latuda 20 mg tablet 20 mg PO DAILY RF: 0 Referrals / Follow Up: Care Physician,No Primary [Primary Care Provider] - In 1 Week Disposition Disposition (needs filled in before D/C Order can be placed): Home, Self Care Documented by User: Dr. Josh Gagnon DO 06/29/21 18:38 Providers Date of Admission: 06/26/21 Reason For Visit: OPIOID WITHDRAWAL Medications at Discharge Home Medications Latuda 20 mg PO DAILY 06/26/21 ABG / Lab / Microbiology Data Result Diagrams: 06/26/21 09:50 06/26/21 09:50 Discharge Plan Admission Admit Date/Time: 06/26/21 11:38 Primary Reason for Your Visit: Opioid withdrawal Attending Provider: Josh Gagnon Primary Care Provider: Rossana Okeefe,No Primary Instructions Forms: Work / School Excuse Discharge Orders/Prescriptions Prescriptions: Continued Latuda 20 mg tablet 20 mg PO DAILY RF: 0 Referrals / Follow Up: Care Physician,No Primary [Primary Care Provider] - In 1 Week Disposition Disposition (needs filled in before D/C Order can be placed): Home, Self Care Charges/Coding Addendum Addendum: Patient was seen and examined today independently of Bianka Hull, she has no withdrawal symptoms at this time, she has decided to follow-up with detox services as an outpatient rather than go into an inpatient program. On examination she appeared in good health and spirits, she does not appear to be in any distress. Vital signs as documented. Skin warm and dry and without overt rashes. Neck without JVD, thyroid appears normal, trachea is midline, neck is supple. Lungs clear, normal air movement was noted. Heart exam notable for regular rhythm, normal sounds and absence of murmurs, rubs or gallops. Abdomen unremarkable and without evidence of organomegaly, masses, or abdominal aortic enlargement, bowel sounds are present in all 4 quadrants, no abdominal tenderness was noted. Extremities nonedematous, no cyanosis was noted, no clubbing was noted. Neuro: Cranial nerves II through XII are grossly intact, no focal motor deficits were noted, sensation to light touch and pinprick is intact, motor exam 5/5 throughout. Psych: Patient is alert and oriented x3, she does not appear anxious or depressed, she does not appear agitated. Impression: #1 acute opiate withdrawal #2 chronic opiate addiction #3 bipolar disorder I have reviewed Bainka Hull's discharge summary including her medical assessment and plan of care and with the above additions endorse it. Total clinical time spent by myself addressing the patient's medical issues, reviewing the patient's medical data, and collaborating with the patient's care team: 20 minutes Visit Charges Inpatient E&M: [id number] Disch Hosp
== END 2021-06-29 13:32 | disposition home or self-care (01) | DRG 772 ==
LOC: ED 10:21 → MS3 12:13
PROVIDERS: Nurse Practitioner; Admitting Provider Internal Medicine; Emergency Provider Emergency Medicine; Visit Provider Internal Medicine
DX: F11.23 Opioid dependence with withdrawal (principal); F31.9 Bipolar disorder, unspecified; F15.10 Other stimulant abuse, uncomplicated; F17.210 Nicotine dependence, cigarettes, uncomplicated; F41.9 Anxiety disorder, unspecified; K21.9 Gastro-esophageal reflux disease without esophagitis; Z79.899 Other long term (current) drug therapy
CPT/HCPCS: 80048; 80307; 81001; 81025; 82077; 83690; 85025; 99285; 99406; J7030; A4216; J2405

== ENCOUNTER → 2021-07-21 | Outpatient (CLI) | payer MEDICAID, SELFPAY ==
[2021-07-21 17:21] LABS: Free T3 3.1 pg/mL (2.18-3.98); T4 Free Direct 1.02 ng/dL (0.76-1.46); Thyroid Stim Hormone (TSH) 3.06 uIU/mL (0.358-3.74)
== END | disposition home or self-care (01) ==
LOC: BIMLAB 16:14
PROVIDERS: PCP Internal Medicine; Referring Provider Internal Medicine; Visit Provider Internal Medicine
DX: F32.A Depression, unspecified (principal); F11.20 Opioid dependence, uncomplicated
CPT/HCPCS: 36415; 82306; 84439; 84443; 84481

== ENCOUNTER 2022-01-15 15:57 | Emergency (ER) | payer MEDICAID, SELFPAY ==
[2022-01-15 15:58] VITALS: BP 105/74; PULSE 63; RESP 18; TEMP 36.3; O2SAT 99; BMI 29.0
--- NOTE | 2022-01-15 16:36 | EX.ED.DYSGE1 ---
HPI History of Present Illness Chief Complaint: Abd Pain Informant: patient Onset/Context/Timing Onset: Days Context: Gradual Onset Narrative Narrative: Patient presents after being ill for the past 4 to 5 days. She states it started out as a congestion and cough type illness. Over the past 2 days it is now more of a GI illness. Yesterday she developed diarrhea and today developed nausea and vomiting. She is unsure if she has had a fever. No urinary symptoms. [facility] Medical History Anemia Asthma Fentanyl dependence Frequent headaches GERD (gastroesophageal reflux disease) History of back pain History of frequent urinary tract infections Hx MRSA infection Substance abuse Home Medications lurasidone 20 mg tablet (Latuda) 20 mg PO DAILY mood 06/26/21 [History Last Taken Unknown] buprenorphine 5.7 mg-naloxone 1.4 mg sublingual tablet ea sublingual 07/21/21 [History Last Taken Unknown] quetiapine 150 mg tablet,extended release 24 hr 150 mg PO QHS #60 tabs 08/26/21 [Rx Last Taken Unknown] dicyclomine 20 mg tablet 20 mg PO BID PRN abdominal cramping #14 tabs 01/15/22 [Rx Last Taken Unknown] metoclopramide HCl 10 mg tablet (Reglan) 10 mg PO Q6H PRN nausea and vomiting #10 tabs 01/15/22 [Rx Last Taken Unknown] omeprazole 20 mg capsule,delayed release 20 mg PO DAILY 4 weeks #28 caps 01/15/22 [Rx Last Taken Unknown] promethazine 25 mg tablet 25 mg PO TID PRN nausea and vomiting #14 tabs 01/15/22 [Rx Last Taken Unknown] Allergy/AdvReac Type Severity Reaction Status Date / Time prednisone Allergy Other Verified 01/15/22 15:58 Family History Father COPD (chronic obstructive pulmonary disease) Mental health disorder Asthma Alcoholism and drug addiction in family Seizures Mother Mental health disorder Anemia Alcoholism and drug addiction in family Diabetes Brother Asthma Grandmother Cancer Grandfather Cancer Aunt Ovarian cancer Surgical History H/O tubal ligation History of tonsillectomy Social History household members: friend(s) Smoking Status: Former smoker alcohol intake: never substance use type: other details: fentanyl what type of physical activity do you participate in: walking frequency: 3-4 times per week seatbelt use: sometimes do you feel safe at home: Yes ROS ROS ED Constitutional Constitutional ED: Denies chills Eyes Eyes: Denies change in vision or discharge from eye(s) ENT ENT ED: Denies discharge from eye(s), rhinorrhea or sore throat Cardiovascular Cardiovascular: Denies chest pain or palpitations Respiratory/Chest Respiratory/Chest: Reports cough; Denies dyspnea Gastrointestinal Gastrointestinal: Reports abdominal pain, diarrhea, nausea and vomiting Genitourinary Genitourinary ED: Denies difficulty urinating or dysuria Musculoskeletal Musculoskeletal: Denies back pain or extremity pain Integumentary Denies Abrasions or rash Neurologic Neurologic: Denies headache(s) or weakness Allergic/Immunologic Allergic/Immunologic ED: Denies lip swelling or urticaria EXAM Physical Exam Const Vital Signs: 01/15/22 15:58 Temperature 97.3 F L Temperature Source Temporal Pulse Rate 63 Respiratory Rate 18 Blood Pressure 105/74 Blood Pressure Mean 84 Pulse Ox 99 Oxygen Delivery Method Room Air Positive well nourished and well developed General Appearance ED: well developed HEENT Reports normocephalic and head/scalp atraumatic Eyes PERRL and EOMs intact bilaterally Neck supple Chest Wall inspection of chest normal and palpation of chest normal Resp normal respiratory effort and clear to auscultation bilaterally Cardio regular rate and regular rhythm GI GI Narrative: Mild diffuse tenderness palpation. No guarding or rebound. Hypoactive bowel sounds. Palpation: soft Extremity normal to inspection Neuro oriented x3 and no sensory deficits noted Sensorium / Orientation: alert Motor Exam: strength 5/5 throughout Psych mental status grossly normal Skin no rashes or lesions noted MDM MDM MDM Narrative Medical decision making narrative: Patient states she has Zofran at home and that has not been helping. She is given IV fluids and Phenergan with Bentyl. Lab work obtained. Lab Data Attestation: I reviewed the patient's lab results. Labs: Laboratory Results - last 24 hr 01/15/22 01/15/22 01/15/22 16:35 16:35 16:35 WBC 7.6 RBC 4.88 Hgb 14.7 Hct 41.5 MCV 85.0 MCH 30.1 MCHC 35.4 RDW Std Deviation 38.4 RDW Coeff of Leah 12.4 Plt Count 286 MPV 10.6 Immature Gran % (Auto) 0.500 Neut % (Auto) 86.3 H Lymph % (Auto) 11.5 L [place] % (Auto) 1.5 Eos % (Auto) 0.1 Baso % (Auto) 0.1 Absolute Neuts (auto) 6.5 Absolute Lymphs (auto) 0.87 Nucleated RBC % 0 Sodium 136 Potassium 3.6 Chloride 103 Carbon Dioxide 26.0 Anion Gap 7 BUN 6 L Creatinine 0.68 Estim Creat Clear Calc 90.45 Est GFR (MDRD) Af Amer 129 Est GFR (MDRD) Non-Af 106 BUN/Creatinine Ratio 8.8 L Glucose 115 H Calcium 9.5 Total Bilirubin 0.50 Direct Bilirubin 0.13 AST 16 ALT 20 Alkaline Phosphatase 114 Total Protein 7.8 Albumin 4.1 Globulin 3.7 Serum , Qual NEGATIVE Treatment and Re-Evaluation Narrative: CBC, CMP, test all unremarkable. On repeat evaluation she states that she is still nauseated and vomiting. She is given a dose of Reglan and Benadryl. At this time she states she is not nauseated but still has abdominal pain. She describes a burning sensation in the epigastrium. Abdominal exam remains benign. Patient be given prescriptions for Prilosec, Reglan, Phenergan, Bentyl. Return instructions given. Discharge Plan Triage Chief Complaint: Abd Pain ED Provider: Erika Siegel Dx/Rx/DC Orders Clinical Impression: Viral syndrome Instructions: ED Viral Syndrome (Adult) Prescriptions: New dicyclomine 20 mg tablet 20 mg PO BID PRN (Reason: abdominal cramping) Qty: 14 0RF promethazine 25 mg tablet 25 mg PO TID PRN (Reason: nausea and vomiting) Qty: 14 0RF omeprazole 20 mg capsule,delayed release(DR/EC) 20 mg PO DAILY 28 Days Qty: 28 0RF metoclopramide HCl [Reglan] 10 mg tablet 10 mg PO Q6H PRN (Reason: nausea and vomiting) Qty: 10 0RF No Action Zubsolv 5.7-1.4 mg tablet, sublingual sublingual Label Comments: Dissolve 1 tablet under the tongue daily Latuda 20 mg tablet 20 mg PO DAILY quetiapine 150 mg tablet extended release 24 hr 150 mg PO QHS Qty: 60 1RF Primary Care Provider: Liana Worrell Referrals: Liana Worrell MD [Primary Care Provider] - 3-5 Days if not improving Disposition Disposition: Home, Self Care
[2022-01-15] MEDS: Dicyclomine 10 MG Capsule 20 MG PO (16:40)
[2022-01-15] MEDS: 0.9% Normal Saline 1,000 ML 1000 ML IV (16:40)
[2022-01-15] MEDS: proMETHazine 25 MG Tablet PO (16:40)
[2022-01-15 16:52] LABS: Absolute Lymphocyte Count 0.87 X10^3/uL (0.83-4.51); Absolute Neutrophil Count 6.5 X10^3/uL (2.0-7.7); Basophil# 0.01 X10^3/uL; Basophil% 0.1 % (0-1); Eosinophil# 0.01 X10^3/uL; Eosinophils% 0.1 % (0-5); Hematocrit 41.5 % (37-47); Hemoglobin 14.7 g/dL (12.0-15.0); Lymphocyte # 0.87 X10^3/ul (0.83-4.51); Lymphocyte % 11.5 % (19-41); Mean Corp Hgb Conc 35.4 g/dL (32-36); Mean Corpuscular Hgb 30.1 pg (27.0-32.0); Mean Platelet Vol. 10.6 fl (6.2-12.0); Monocyte# 0.11 X10^3/uL; Monocyte% 1.5 % (0-10); NRBC Flagged by Analyzer 0 % (0-5); Neutrophil # 6.54 X10^3/uL (2.7-7.7); Neutrophil % 86.3 % (47-70); Platelet Count 286 K/mm3 (150-450); RBC Distribution Width CV 12.4 % (11.6-14.6); RBC Distribution Width SD 38.4 fl (35.1-43.9); Red Blood Count 4.88 M/mm3 (4.2-5.4); White Blood Count 7.6 K/mm3 (4.4-11.0)
[2022-01-15 17:05] LABS: Internal QC Validated? YES +Cl - CLEAR BKGD; Pregnancy, Serum, hCG Quali. NEGATIVE Negative
[2022-01-15 17:14] LABS: AST(SGOT) 16 U/L (15-37); Alanine Aminotransfer ALT/SGPT 20 U/L (13-56); Albumin, Serum 4.1 g/dL (3.2-5.0); Alkaline Phosphatase 114 U/L (45-117); Anion Gap 7 (5-15); BUN 6 mg/dL (7-18); BUN/Creat Ratio 8.8 RATIO (10-20); Bilirubin, Direct 0.13 mg/dL (0.00-0.30); Calcium,Total 9.5 mg/dL (8.5-10.1); Chloride 103 mmol/L (98-107); Creatinine, Serum 0.68 mg/dL (0.55-1.02); EST Glomerular Filtration Rate 106 mL/min (>60); Est Glom Filt Rate - Afr Amer 129 mL/min (>60); Estimated Creatinine Clearance 90.45 ml/min; Globulin 3.7 g/dL (2.2-4.2); Glucose 115 mg/dL (74-106); Potassium 3.6 mmol/L (3.5-5.1); Protein, Total 7.8 g/dL (6.4-8.2); Sodium Level 136 mmol/L (136-145)
[2022-01-15] MEDS: Metoclopramide 10 MG/2 ML Vial IV (17:45)
[2022-01-15] MEDS: DiphenhydrAMINE 50 MG/ML Syringe 25 MG IV (17:46)
[2022-01-15] MEDS: 0.9% Normal Saline 1,000 ML 150 ML IV (18:10)
== END 2022-01-15 19:05 | disposition home or self-care (01) ==
PROVIDERS: Emergency Provider Emergency Medicine; PCP Internal Medicine; Visit Provider Emergency Medicine
DX: B34.9 Viral infection, unspecified (principal); R10.9 Unspecified abdominal pain; R11.2 Nausea with vomiting, unspecified; R19.7 Diarrhea, unspecified; J45.909 Unspecified asthma, uncomplicated; K21.9 Gastro-esophageal reflux disease without esophagitis; Z87.891 Personal history of nicotine dependence
CPT/HCPCS: 80048; 80076; 84703; 85025; 96361; 96374; 96375; 99283

== ENCOUNTER 2022-03-25 22:25 | Inpatient (IN) | payer MEDICAID, SELFPAY ==
[2022-03-25 22:25] VITALS: BP 121/97; PULSE 77; RESP 18; TEMP 36.2; O2SAT 99; BMI 26.4
[2022-03-25 23:14] LABS: Internal QC Validated? YES +Cl - CLEAR BKGD; Pregnancy, Urine Negative Negative
[2022-03-26] VITALS (8 sets, daily range): BP systolic 93–121; BP diastolic 58–97; PULSE 75–95; RESP 16–18; TEMP 36.6–37.2; O2SAT 97–100; BMI 25.7
--- NOTE | 2022-03-26 00:01 | HP.PCM.HOS_ITS ---
[facility] - General General Date of Service: 03/26/22 Chief Complaint: Desire for detoxification HPI Narrative SANGEETHA BUTLER, is a 31 F with a significant history of polysubstance abuse and tobacco abuse who presents emergency department with a desire for detoxification. Reportedly patient's main drug of choice is fentanyl. She snorts it. She uses half a gram to a gram per day. Last time he she used was about 2 days before presentation. She reports withdrawal symptoms of feeling cold, aching and diaphoresis. She reports feeling very uncomfortable. Reportedly all and all she has been using drugs for about 1 year. She was cleaned and resumed using about 2 and half months to 3 months ago. She wants to quit drug use because she is moving in with somebody who would not allow her to be using drugs. Patient also occasionally uses other drugs like cocaine, and meth. She has a medical card for marijuana which she also uses. [facility] Medical History Anemia Asthma Fentanyl dependence Frequent headaches GERD (gastroesophageal reflux disease) History of back pain History of frequent urinary tract infections Hx MRSA infection Substance abuse Home Medications lurasidone 20 mg tablet (Latuda) 20 mg PO DAILY mood 06/26/21 [History Last Taken Unknown] buprenorphine 5.7 mg-naloxone 1.4 mg sublingual tablet ea sublingual 07/21/21 [History Last Taken Unknown] quetiapine 150 mg tablet,extended release 24 hr 150 mg PO QHS #60 tabs 08/26/21 [Rx Last Taken Unknown] dicyclomine 20 mg tablet 20 mg PO BID PRN abdominal cramping #14 tabs 01/15/22 [Rx Last Taken Unknown] metoclopramide HCl 10 mg tablet (Reglan) 10 mg PO Q6H PRN nausea and vomiting #10 tabs 01/15/22 [Rx Last Taken Unknown] omeprazole 20 mg capsule,delayed release 20 mg PO DAILY 4 weeks #28 caps 01/15/22 [Rx Last Taken Unknown] promethazine 25 mg tablet 25 mg PO TID PRN nausea and vomiting #14 tabs 01/15/22 [Rx Last Taken Unknown] Allergy/AdvReac Type Severity Reaction Status Date / Time prednisone Allergy Other Verified 01/15/22 15:58 Family History Father COPD (chronic obstructive pulmonary disease) Mental health disorder Asthma Alcoholism and drug addiction in family Seizures Mother Mental health disorder Anemia Alcoholism and drug addiction in family Diabetes Brother Asthma Grandmother Cancer Grandfather Cancer Aunt Ovarian cancer Surgical History H/O tubal ligation History of tonsillectomy Social History household members: friend(s) Smoking Status: Current every day smoker tobacco type: cigarettes alcohol intake: never substance use type: other details: fentanyl what type of physical activity do you participate in: walking frequency: 3-4 times per week seatbelt use: sometimes do you feel safe at home: Yes ROS ROS Narrative Pertinent positives and pertinent negatives as noted in HPI. All other systems were reviewed and are negative Vital Signs Vital Signs Vital Signs: 03/25/22 22:25 Temperature 97.2 F L Temperature Source Temporal Pulse Rate 77 Respiratory Rate 18 Blood Pressure 121/97 H Blood Pressure Mean 105 Pulse Ox 99 Oxygen Delivery Method Room Air Weight Weight: 63.503 kg Body Mass Index (BMI) 26.4 Physical Exam Narrative Physical exam: General: Well-nourished, well-developed. Head: Normocephalic, atraumatic, no tenderness Eyes: Vision is grossly intact. EOMI ENT, no trauma, moist mucous membranes, no rhinorrhea Neck: Nontender, No thyromegaly. CVS: Regular rate and rhythm. S1-S2 present. No murmur, gallop or rub. Respiratory : clear to auscultation bilaterally, chest wall nontender, no wheezing Abdomen: Soft, nontender, nondistended, normal bowel sounds, no masses : Deferred Back: Nontender, no CVA tenderness, no midline spinal tenderness, deformities, step-offs Extremities: Nontender full range of motion, no trauma Skin: Diaphoretic; Normal color, no trauma, abrasions Neuro: Alert, oriented, cranial nerves II through XII grossly intact. Psychiatry: Normal mood. Normal affect. Not depressed. Not anxious. Results Lab / Micro Data Labs: Laboratory Results - last 24 hr 03/25/22 23:00: Urine Test Negative Assessment & Plan Assessment/Plan (1) Desire for detoxification: (2) Fentanyl dependence: (3) Polysubstance abuse: PLAN: Plan Opioid dependence and withdrawal Patient be started on Subutex and other adjunctive medications: Gabapentin as needed; dicyclomine as needed; Vistaril as needed; methocarbamol as needed; clonidine as needed; Imodium as needed; trazodone as needed and Zofran as needed. Monitor COWS and CINA score Tobacco abuse Counseled Nicotine patch prescribed. Polysubstance abuse (coke, meth) Counselled. DVT prophylaxis Low risk Encourage to ambulate Charges/Coding Visit Charges Inpatient E&M: 24864 Init Hosp L2
--- NOTE | 2022-03-26 00:12 | EDS_ITS ---
HPI History of Present Illness Chief Complaint: Substance Abuse Narrative Narrative: Patient is a 31-year-old female who reports a history of fentanyl abuse. She states that she got off the drug through detox and rehab roughly 1 year ago. She reports in the past 1 to 2 months she has been using daily. She states that she snorts the drug and denies any injection. Patient states that she is moving in with someone new who refuses to allow them to use drugs in the house and secondary to this patient now has a reason to get clean again. He does report a history of anemia and states she is supposed to be on B12 and iron but only takes them intermittently. Otherwise she denies any homicidal or suicidal ideation and states its been roughly 1 to 1-1/2 days since she last used. [facility] Medical History Anemia Asthma Fentanyl dependence Frequent headaches GERD (gastroesophageal reflux disease) History of back pain History of frequent urinary tract infections Hx MRSA infection Substance abuse Home Medications lurasidone 20 mg tablet (Latuda) 20 mg PO DAILY mood 06/26/21 [History Last T aken Unknown] buprenorphine 5.7 mg-naloxone 1.4 mg sublingual tablet ea sublingual 07/21/21 [History Last Taken Unknown] quetiapine 150 mg tablet,extended release 24 hr 150 mg PO QHS #60 tabs 08/26/21 [Rx Last Taken Unknown] dicyclomine 20 mg tablet 20 mg PO BID PRN abdominal cramping #14 tabs 01/15/22 [Rx Last Taken Unknown] metoclopramide HCl 10 mg tablet (Reglan) 10 mg PO Q6H PRN nausea and vomiting #10 tabs 01/15/22 [Rx Last Taken Unknown] omeprazole 20 mg capsule,delayed release 20 mg PO DAILY 4 weeks #28 caps 01/15/22 [Rx Last Taken Unknown] promethazine 25 mg tablet 25 mg PO TID PRN nausea and vomiting #14 tabs 01/15/22 [Rx Last Taken Unknown] Allergy/AdvReac Type Severity Reaction Status Date / Time prednisone Allergy Other Verified 01/15/22 15:58 Family History Father COPD (chronic obstructive pulmonary disease) Mental health disorder Asthma Alcoholism and drug addiction in family Seizures Mother Mental health disorder Anemia Alcoholism and drug addiction in family Diabetes Brother Asthma Grandmother Cancer Grandfather Cancer Aunt Ovarian cancer Surgical History H/O tubal ligation History of tonsillectomy Social History household members: friend(s) Smoking Status: Current every day smoker tobacco type: cigarettes alcohol intake: never substance use type: other details: fentanyl what type of physical activity do you participate in: walking frequency: 3-4 times per week seatbelt use: sometimes do you feel safe at home: Yes ROS ROS ED Constitutional Constitutional ED: Denies chills or fever(s) ENT ENT ED: Denies sore throat Cardiovascular Cardiovascular: Denies chest pain Respiratory/Chest Respiratory/Chest: Denies cough or dyspnea Gastrointestinal Gastrointestinal: Reports nausea; Denies abdominal pain, diarrhea or vomiting Genitourinary Genitourinary ED: Denies dysuria Musculoskeletal Musculoskeletal: Reports myalgias Integumentary Denies rash Neurologic Neurologic: Denies headache(s) Psychiatric Psychiatric: Reports anxiety Hematologic/Lymphatic Hematologic/Lymphatic: Denies easy bleeding or easy bruising EXAM Physical Exam Const Vital Signs: 03/25/22 22:25 Temperature 97.2 F L Temperature Source Temporal Pulse Rate 77 Respiratory Rate 18 Blood Pressure 121/97 H Blood Pressure Mean 105 Pulse Ox 99 Oxygen Delivery Method Room Air Positive well nourished and well developed General Appearance ED: well developed HEENT Reports moist mucous membranes Eyes PERRL and EOMs intact bilaterally General Eye ED: Negative for scleral icterus Neck supple Resp normal respiratory effort and clear to auscultation bilaterally Cardio regular rate and regular rhythm GI non-tender and non-distended GI Narrative: No voluntary guarding or rigidity no pulsatile mass Auscultation: hypoactive bowel sounds Palpation: soft Extremity normal to inspection Neuro oriented x3 and CN's II-XII intact bilaterally Sensorium / Orientation: alert Psych Psych Narrative: Patient has a flat affect but no homicidal or suicidal ideation Skin no rashes or lesions noted Skin Narrative: No track amaro noted General Skin Exam: Negative for jaundice MDM MDM MDM Narrative Medical decision making narrative: Patient presented to the ER with stable vitals and concern/desire for detox from fentanyl. As her vitals are stable and her exam is nonfocal and shows no secondary changes for infection I do not feel there is need for work-up. Patient will be admitted to the medical service to undergo detox for her fentanyl abuse. will be ruled out per protocol. Patient's test was negative and on reevaluation vitals remained stable and exam nonfocal and therefore should be admitted for detoxification at this time. Lab Data Labs: Laboratory Results - last 24 hr 03/25/22 23:00 Urine Test Negative Discharge Plan Dx/Rx/DC Orders Clinical Impression: Fentanyl dependence, Desire for detoxification Disposition Disposition: Acute Care Hospital [facility]
[2022-03-26] MEDS: traZODone 100 MG Tablet PO ×2 (01:34→20:20)
[2022-03-26] MEDS: hydrOXYzine PAM 25 MG Capsule 50 MG PO (01:34)
[2022-03-26] MEDS: Methocarbamol 750 MG Tablet 1500 MG PO ×2 (01:34→20:27)
[2022-03-26] MEDS: Buprenorphine HCl 2 MG TAB.SUBL SL ×3 (02:09→17:40)
[2022-03-26] MEDS: Gabapentin 300 MG Capsule PO ×2 (07:41→20:27)
[2022-03-26] MEDS: buPROPion (SR) 150 MG Tablet.SA PO ×2 (09:42→20:20)
--- NOTE | 2022-03-26 09:53 | NURSING ---
called friend Cong to jamel Conte to bring home medication latuda in to hospital in original bottle.
--- NOTE | 2022-03-26 11:11 | ADDICTION ---
This hand sign writer met with PT to conduct ASAM, MSE, AUDIT, DUDIT assessments and to plan for d/c. PT A+Ox4 and participated actively. All assessments completed and placed in PT's chart. PT plans to f/u with [facility] for outpatient treatment services. PT did not indicate a need for transportation post d/c from [facility].
[2022-03-27] MEDS: Buprenorphine HCl 2 MG TAB.SUBL SL ×3 (01:54→19:01)
[2022-03-27 02:03] VITALS: BP 97/64; PULSE 82; RESP 16; TEMP 37; O2SAT 96
--- NOTE | 2022-03-27 09:26 | PCM.PN.HOSP ---
Subjective Subjective No issues overnight, Cina score of 1 Objective Data Objective Data Vital Signs: Vital Signs Temp Pulse Resp BP Pulse Ox O2 Del Method 98.6 F 82 16 97/64 96 Room Air 03/27/22 02:03 03/27/22 02:03 03/27/22 02:03 03/27/22 02:03 03/27/22 02:03 03/27/22 02:03 Oxygen Delivery Method Room Air Weight: 136 lb 0.002 oz Body Mass Index (BMI) 25.7 Intake & Output: Intake and Output for Last 24 Hours 03/26/22 03/27/22 03/28/22 03:59 03:59 03:59 Intake Total 1939 Balance 1939 Physical Exam Narrative General: Alert, Oriented x3, Cooperative, No apparent distress HEENT: Atraumatic, PERRLA, EOMI, Normocephalic Oral: Moist Mucosa Neck: Supple, No JVD Lungs: Clear to auscultation, Normal air movement, No rhonchi, No wheeze, No rales Cardiovascular: Regular rate, Regular Rhythm, Normal S1, Normal S2, No murmurs Abdomen: Soft, Non Tender, Non-Distended, No Hepato-splenomegaly Extremities: No edema, Capillary Refill Less than 3 Seconds Skin: No rashes, No breakdown Musculoskeletal: No Tenderness to Palpation of Joints or Extremities Neurological: Cranial nerves II-XII grossly intact, Motor Exam 5/5 strength throughout, Sensory exam intact to light touch and pain Psych/Mental Status: Normal Affect, Appropriate Assessment & Plan Assessment/Plan (1) Desire for detoxification: (2) Fentanyl dependence: (3) Polysubstance abuse: PLAN: Plan 1. Acute opiate withdrawal/tobacco abuse/polysubstance abuse/anxiety/depression ? Continue with the opiate withdrawal protocol ? We will have her follow-up with 180 as an outpatient ? Counseled on tobacco cessation as well as cocaine meth cessation, will continue with nicotine patch ? She is on Wellbutrin and Latuda as an out patient as well as Seroquel DVT: Ambulation Charges/Coding Visit Charges Inpatient E&M: 64351 Subs Hosp L2
[2022-03-27 10:00] VITALS: BP 99/72; PULSE 72; RESP 16; TEMP 36.6; O2SAT 98
[2022-03-27] MEDS: buPROPion (SR) 150 MG Tablet.SA PO ×2 (10:08→22:00)
[2022-03-27] MEDS: Acetaminophen 325 MG Tablet 650 MG PO (10:13)
[2022-03-27] MEDS: LURASIDONE HCL 40 MG TABLET PO (12:53)
[2022-03-27] MEDS: LURASIDONE HCL 20 MG TABLET PO (12:54)
[2022-03-27 15:54] VITALS: BP 100/57; PULSE 86; RESP 16; TEMP 36.8; O2SAT 96
[2022-03-27] MEDS: Methocarbamol 750 MG Tablet 1500 MG PO (17:09)
[2022-03-27] MEDS: hydrOXYzine PAM 25 MG Capsule 50 MG PO (17:09)
[2022-03-27 20:43] VITALS: BP 85/61; PULSE 87; RESP 18; TEMP 37.1; O2SAT 98
[2022-03-27 21:00] VITALS: BP 99/65; PULSE 88; RESP 16; TEMP 37.1; O2SAT 98
[2022-03-27] MEDS: traZODone 100 MG Tablet PO (22:00)
[2022-03-28 02:24] VITALS: BP 83/46; PULSE 74; RESP 18; TEMP 37; O2SAT 98
[2022-03-28] MEDS: Buprenorphine HCl 2 MG TAB.SUBL SL ×2 (02:29→13:37)
[2022-03-28 03:54] VITALS: BP 87/49; PULSE 72; RESP 18; TEMP 36.8; O2SAT 98
[2022-03-28 06:12] VITALS: BP 83/60; PULSE 70; RESP 18; TEMP 36.7; O2SAT 99
--- NOTE | 2022-03-28 07:20 | DCINST_ITS ---
Discharge Instructions Diet Discharge Diet: No restrictions Activity Discharge Activity: Return to Normal Activity Dressing / Incision Call your doctor if you observe: Fever of 101 or Higher, Shortness of breath, Dizziness, Fainting spells, Swelling in the ankles, Chest pain and Increased palpitations (irregular heartbeat) Follow Up Care Test Results: Test results from this visit will be discussed in further detail at your follow- up appointment, if applicable. Discharge Plan Admission Admit Date/Time: 03/26/22 00:03 Attending Provider: Blaise Hinds Primary Care Provider: Liana Worrell Consulting Providers: Sha Evangelista Discharge Orders/Prescriptions Prescriptions: Continued Latuda 20 mg tablet 60 mg PO DAILY promethazine 25 mg tablet 25 mg PO TID PRN (Reason: nausea and vomiting) Qty: 14 0RF metoclopramide HCl [Reglan] 10 mg tablet 10 mg PO Q6H PRN (Reason: nausea and vomiting) Qty: 10 0RF bupropion HCl 150 mg tablet sustained-release 12 hr 300 mg PO DAILY Label Comments: Take 1 tablet by mouth twice a day methocarbamol 750 mg tablet 750 mg PO Q8H Label Comments: TAKE 1 TABLET BY MOUTH EVERY 8 HOURS trazodone 100 mg tablet 100 mg PO QHS Label Comments: TAKE 1 TABLET BY MOUTH ONCE DAILY AT BEDTIME omeprazole 20 mg capsule,delayed release(DR/EC) 20 mg PO DAILY PRN (Reason: gerd) quetiapine [Seroquel XR] 150 mg tablet extended release 24 hr 300 mg PO QHS Referrals / Follow Up: Liana Worrell MD [Primary Care Provider] - Within 1 Week Disposition Disposition (needs filled in before D/C Order can be placed): Home, Self Care
[2022-03-28 07:23] VITALS: BP 110/68; PULSE 101; RESP 16; TEMP 36.8; O2SAT 97
[2022-03-28 08:12] VITALS: BP 77/45; PULSE 77; RESP 12; TEMP 36.5; O2SAT 96
[2022-03-28] MEDS: buPROPion (SR) 150 MG Tablet.SA PO (09:50)
[2022-03-28] MEDS: LURASIDONE HCL 20 MG TABLET 60 MG PO (11:30)
[2022-03-28 13:55] VITALS: BP 110/68; PULSE 101; RESP 16; TEMP 36.8; O2SAT 97
--- NOTE | 2022-03-28 14:25 | DS.PCM_ITS ---
Providers Date of Admission: 03/26/22 Primary Care Physician: Dr. Liana Worrell MD Reason For Visit: DESIRE FOR DETOXIFICATION Diagnosis Discharge Diagnosis (1) Desire for detoxification: Status: Acute (2) Fentanyl dependence: Status: Acute Code(s): F11.20 - Opioid dependence, uncomplicated (3) Polysubstance abuse: Status: Acute Code(s): F19.10 - Other psychoactive substance abuse, uncomplicated Plan 1. Acute opiate withdrawal/tobacco abuse/polysubstance abuse/anxiety/depression ? Continue with the opiate withdrawal protocol ? We will have her follow-up with 180 as an outpatient ? Counseled on tobacco cessation as well as cocaine meth cessation, will continue with nicotine patch ? She is on Wellbutrin and Latuda as an out patient as well as Seroquel DVT: Ambulation Medications at Discharge Home Medications lurasidone 20 mg tablet (Latuda) 60 mg PO DAILY mood 06/26/21 metoclopramide HCl 10 mg tablet (Reglan) 10 mg PO Q6H PRN nausea and vomiting #10 tabs 01/15/22 promethazine 25 mg tablet 25 mg PO TID PRN nausea and vomiting #14 tabs 01/15/22 bupropion HCl 150 mg tablet,12 hr sustained-release 300 mg PO DAILY anxiety 03/26/22 methocarbamol 750 mg tablet 750 mg PO Q8H pain 03/26/22 omeprazole 20 mg capsule,delayed release 20 mg PO DAILY PRN gerd 03/26/22 quetiapine 150 mg tablet,extended release 24 hr (Seroquel XR) 300 mg PO QHS depression 03/26/22 trazodone 100 mg tablet 100 mg PO QHS sleep 03/26/22 Hospital Course Operations None Procedures None Summary of Care Provided Minutes Spent on Discharge: 34 Hospital Course: Per HPI: SANGEETHA BUTLER, is a 31 F with a significant history of polysubstance abuse and tobacco abuse who presents emergency department with a desire for detoxification.? Reportedly patient's main drug of choice is fentanyl.? She snorts it.? She uses half a gram to a gram per day.? Last time he she used was about 2 days before presentation.? She reports withdrawal symptoms of feeling cold, aching and diaphoresis.? She reports feeling very uncomfortable.? Reportedly all and all she has been using drugs for about 1 year.? She was cleaned and resumed using about 2 and half months to 3 months ago.? She wants to quit drug use because she is moving in with somebody who would not allow her to be using drugs. Patient also occasionally uses other drugs like cocaine, and meth.? She has a [employer] card for marijuana which she also uses. Hospital Course: 1.? Acute opiate withdrawal/tobacco abuse/polysubstance abuse/anxiety/depression ?She successfully completed the opiate withdrawal protocol, discussed with her the plan for discharge today she expressed understanding of the risk benefits going home and would like to go home today. ? We will have her follow-up with 180 as an outpatient ? Counseled on tobacco cessation as well as cocaine meth cessation ? She is on Wellbutrin and Latuda as an out patient as well as Seroquel Physical Exam Narrative General: Alert, Oriented x3, Cooperative, No apparent distress HEENT: Atraumatic, PERRLA, EOMI, Normocephalic Oral: Moist Mucosa Neck: Supple, No JVD Lungs: Clear to auscultation, Normal air movement, No rhonchi, No wheeze, No rales Cardiovascular: Regular rate, Regular Rhythm, Normal S1, Normal S2, No murmurs Abdomen: Soft, Non Tender, Non-Distended, No Hepato-splenomegaly Extremities: No edema, Capillary Refill Less than 3 Seconds Skin: No rashes, No breakdown Musculoskeletal: No Tenderness to Palpation of Joints or Extremities Neurological: Cranial nerves II-XII grossly intact, Motor Exam 5/5 strength throughout, Sensory exam intact to light touch and pain Psych/Mental Status: Normal Affect, Appropriate Weight / BMI Weight Weight: 136 lb 0.002 oz Body Mass Index (BMI) 25.7 D/C Instructions Discharge Diet: No restrictions Call your doctor if you observe: Fever of 101 or Higher, Shortness of breath, Dizziness, Fainting spells, Swelling in the ankles, Chest pain and Increased palpitations (irregular heartbeat) Meaningful Use Info Meaningful Use Diagnoses (Choose all that apply): None applicable Discharge Plan Admission Admit Date/Time: 03/26/22 00:03 Attending Provider: Blaise Hinds Primary Care Provider: Liana Worrell Consulting Providers: Sha Evangelista Discharge Orders/Prescriptions Prescriptions: Continued Latuda 20 mg tablet 60 mg PO DAILY promethazine 25 mg tablet 25 mg PO TID PRN (Reason: nausea and vomiting) Qty: 14 0RF metoclopramide HCl [Reglan] 10 mg tablet 10 mg PO Q6H PRN (Reason: nausea and vomiting) Qty: 10 0RF bupropion HCl 150 mg tablet sustained-release 12 hr 300 mg PO DAILY Label Comments: Take 1 tablet by mouth twice a day methocarbamol 750 mg tablet 750 mg PO Q8H Label Comments: TAKE 1 TABLET BY MOUTH EVERY 8 HOURS trazodone 100 mg tablet 100 mg PO QHS Label Comments: TAKE 1 TABLET BY MOUTH ONCE DAILY AT BEDTIME omeprazole 20 mg capsule,delayed release(DR/EC) 20 mg PO DAILY PRN (Reason: gerd) quetiapine [Seroquel XR] 150 mg tablet extended release 24 hr 300 mg PO QHS Referrals / Follow Up: Liana Worrell MD [Primary Care Provider] - Within 1 Week Disposition Disposition (needs filled in before D/C Order can be placed): Home, Self Care Charges/Coding Visit Charges Inpatient E&M: 22624 Disch Hosp >30min
== END 2022-03-28 13:54 | disposition home or self-care (01) | DRG 772 ==
LOC: ED 03-26 00:12 → MS2 03-26 01:01
PROVIDERS: Admitting Provider Hospitalist; Emergency Provider Emergency Medicine; PCP Internal Medicine; Visit Provider Family Medicine
DX: F11.23 Opioid dependence with withdrawal (principal); F14.10 Cocaine abuse, uncomplicated; F15.10 Other stimulant abuse, uncomplicated; J45.909 Unspecified asthma, uncomplicated; F41.9 Anxiety disorder, unspecified; K21.9 Gastro-esophageal reflux disease without esophagitis; F17.210 Nicotine dependence, cigarettes, uncomplicated; F32.A Depression, unspecified; Z79.899 Other long term (current) drug therapy; Z86.14 Personal history of Methicillin resistant Staphylococcus aureus infection
CPT/HCPCS: 81025; 99283

== ENCOUNTER 2022-09-30 14:27 | Emergency (ER) | payer MEDICAID, SELFPAY ==
[2022-09-30 14:28] VITALS: BP 113/91; PULSE 90; RESP 18; TEMP 36.4; O2SAT 100; BMI 27.7
--- NOTE | 2022-09-30 14:40 | ED.RN ---
While triaging pt. and asking questions about suicidal thoughts she initially made a comment about harming herself but they stated she was not suicidal. Pt. then made several comments about harming herself. Pt. stated I just be better jumping off a bridge, I would kill myself before I went to a psych hospital, my kids are better off without me. When this RN asked pt. is she would like to file a police report she stated I want to file a report but I am scared I have a warrant out and I don't want to go to penitentiary for 9 months.
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
[2022-09-30] MEDS: Amox/Clavulanate 875 MG Tablet PO (15:39)
--- NOTE | 2022-09-30 15:57 | ED.RN ---
at 1540 this rn into room to Talk with pt. pt informed. PT STATES I'M LEAVING, PER CASE MANAGEMENT THEIR ARE CONCERNS FOR PT SAFETY. DECISION TO PINK SLIP. THIS RN REMAINS IN ROOM TO TALK WITH PT ABOUT PINK SLIP. PT BECOMES ANGRY, SWEARING AT STAFF, BELIGERENT. THIS RN AND PAUL RN ATTEMPT TO ASSIST PT INTO GOWN. PT BEGINS FLINGING THE GOWN AT STAFF AND THROWING ARM TOWARDS STAFF. PT PHYSICALLY RESTRAINED FOR STAFF SAFETY. AMBER DURAN IN ROOM. DR PLUMMER IN ROOM. PT PLACED IN 4 POINT RESTRAINTS AT 1555
[2022-09-30 16:27] VITALS: BP 104/74; PULSE 81; RESP 16; O2SAT 98
[2022-09-30 16:53] LABS: Absolute Lymphocyte Count 1.34 X10^3/uL (0.83-4.51); Absolute Neutrophil Count 5.9 X10^3/uL (2.0-7.7); Basophil# 0.01 X10^3/uL; Basophil% 0.1 % (0-1); Eosinophil# 0.11 X10^3/uL; Eosinophils% 1.4 % (0-5); Hematocrit 42.5 % (37-47); Hemoglobin 14.3 g/dL (12.0-15.0); Lymphocyte # 1.34 X10^3/ul (0.83-4.51); Mean Corp Hgb Conc 33.6 g/dL (32-36); Mean Corpuscular Hgb 30.7 pg (27.0-32.0); Mean Corpuscular Volume 91.2 fL (81-99); Mean Platelet Vol. 10.1 fl (6.2-12.0); Monocyte# 0.45 X10^3/uL; Monocyte% 5.7 % (0-10); NRBC Flagged by Analyzer 0 % (0-5); Neutrophil # 5.94 X10^3/uL (2.7-7.7); Neutrophil % 75.7 % (47-70); Platelet Count 262 K/mm3 (150-450); RBC Distribution Width CV 13.2 % (11.6-14.6); Red Blood Count 4.66 M/mm3 (4.2-5.4); White Blood Count 7.9 K/mm3 (4.4-11.0)
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
[2022-09-30 17:14] LABS: Anion Gap 5 (5-15); BUN 8 mg/dL (7-18); BUN/Creat Ratio 14.6 RATIO (10-20); Calcium,Total 8.7 mg/dL (8.5-10.1); Chloride 106 mmol/L (98-107); Creatinine, Serum 0.55 mg/dL (0.55-1.02); EST Glomerular Filtration Rate 137 mL/min (>60); Est Glom Filt Rate - Afr Amer 166 mL/min (>60); Estimated Creatinine Clearance 111.84 ml/min; Glucose 80 mg/dL (74-106); Potassium 3.5 mmol/L (3.5-5.1); Sodium Level 140 mmol/L (136-145)
--- NOTE | 2022-09-30 17:17 | ED.RN ---
THIS RN WENT IN WITH PRIMARY RN JO ANN TO STRAIGHT CATH PATIENT SHE REFUSES TO DRINK WATER OR PRODUCE A URINE SAMPLE. PT STATES SHE HAS NOT ATE OR DRANK IN TWO DAYS. WHEN OFFERED WATER THROUGH A STRAW SHE REFUSED. WHEN DOING A STRAIGHT CATH ON THE PATIENT THE PATIENT BEGINS BEARING DOWN AND STATES THERE'S YOUR PEE. PT STATES SHE WANTS OUT OF THE LEG RESTRAINTS SO SHE CAN TURN OVER AND GET COMFORTABLE SO HER BLOOD PRESSURE DOESN'T DROP. WHEN THESE RNS LEAVE THE ROOM THE PT PROCEEDS TO RIP HER BP CUFF OFF HER LEFT ARM WITH HER TEETH. BP CUFF REMOVED AND PLACED ON HER LEG TO PREVENT INJURY AND TO MAINTAIN MONITORING. PT STATES SHE WANTS TO SEE THE KARLEE OMBUDSMAN OR ANYONE THAT ISN'T A PROGRAM DEVELOPMENT MANAGER INSPECTOR FILTER TIP. PT REDIRECTED AND INFORMED UNTIL SHE CAN BE COOPERATIVE AND LESS AGGRESSIVE TOWARDS STAFF SHE WILL REMAIN IN RESTRAINTS.
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
[2022-09-30 17:20] LABS: Alcohol, Blood (Medical)-Serum < 3.0 mg/dL
[2022-09-30 17:45] LABS: Amphetamine Urine VISTA POSITIVE (<1000 ng/mL); Barbiturate Urine VISTA NEGATIVE (< 200 ng/mL); Benzodiazepine Urine VISTA NEGATIVE (< 200 ng/mL); Cocaine Urine VISTA NEGATIVE (< 300 ng/mL); Ecstacy Urine VISTA NEGATIVE (< 500 ng/mL); Methadone Urine VISTA NEGATIVE (< 300 ng/mL); PCP Urine VISTA NEGATIVE (< 25 ng/mL); THC Urine VISTA POSITIVE (< 50 ng/mL); Vista UDS pH Range 6
[2022-09-30 18:00] VITALS: BP 131/80; PULSE 91; RESP 18; O2SAT 100
--- NOTE | 2022-09-30 19:00 | ED.RN ---
Pt continues with cursing at staff, uncooperative with care. Pt currently scratching at abscess on face causing it to bleed, states fuck off bitch when asked to stop.
--- NOTE | 2022-09-30 19:01 | ED.RN ---
EVERYTIME STAFF ENTERS ROOM ATTEMPTING TO HELP OR ASSIST PT. PT BECOMES BELLIGERENT. PT STATES FUCK YOU BUNCH OF BITCHES. MULTIPLE STAFF ENCOURAGE PT TO COOPERATE WITH STAFF TO GET OUT OF RESTRAINTS. PT JUST YELLS... FUCKING BITCHES
[2022-09-30 19:06] LABS: Internal QC Validated? YES +Cl - CLEAR BKGD; Pregnancy, Urine Negative Negative
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
[2022-09-30 20:00] VITALS: BP 128/81; PULSE 82; RESP 16; O2SAT 100
[2022-09-30] MEDS: Ibuprofen 200 MG Tablet 400 MG PO (21:24)
--- NOTE | 2022-09-30 21:34 | ED.RN ---
Pt requesting to speak to a psychological operations officer, HRO notified and in to see pt.
[2022-09-30] MEDS: cloNIDine HCl 0.1 MG Tablet PO (21:50)
[2022-09-30] MEDS: traZODone 100 MG Tablet PO (21:50)
--- NOTE | 2022-09-30 22:55 | CM.ED ---
Social Work Pt accepted to [facility] by Analia Gonsales. Taking to [facility] unit and to be transferred to [facility] tomorrow. Nurse to nurse [phone]. Chiara James DOCUMENTATION MANAGER, ALUMNI RELATIONS MANAGER
[2022-09-30 23:57] VITALS: BP 124/78; PULSE 81; RESP 16; O2SAT 98
[2022-10-01] MEDS: Ibuprofen 200 MG Tablet 400 MG PO (03:13)
[2022-10-01 03:16] VITALS: BP 103/66; PULSE 69; RESP 14; O2SAT 98
[2022-10-01 05:39] VITALS: RESP 16
[2022-10-01 06:10] VITALS: BP 102/66; PULSE 68; RESP 16; TEMP 36.7; O2SAT 98
[2022-10-01 06:57] VITALS: RESP 18
== END 2022-10-01 07:15 ==
PROVIDERS: Physician Assistant; Emergency Provider Emergency Medicine; PCP Internal Medicine; Visit Provider Emergency Medicine
DX: S05.11XA Contusion of eyeball and orbital tissues, right eye, initial encounter (principal); R45.851 Suicidal ideations; F32.A Depression, unspecified; Y04.8XXA Assault by other bodily force, initial encounter; L03.90 Cellulitis, unspecified; H54.62 Unqualified visual loss, left eye, normal vision right eye; J45.909 Unspecified asthma, uncomplicated; K21.9 Gastro-esophageal reflux disease without esophagitis; F17.210 Nicotine dependence, cigarettes, uncomplicated; Z79.899 Other long term (current) drug therapy
CPT/HCPCS: 70450; 70486; 80048; 80307; 81025; 82077; 85025; 87428; 99285; A4216; J3486

== ENCOUNTER 2023-06-20 22:50 | Emergency (ER) | payer SELFPAY ==
[2023-06-20 22:51] VITALS: BP 131/95; PULSE 100; RESP 18; TEMP 36.1; O2SAT 100; BMI 27.1
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
[2023-06-21 00:32] VITALS: BP 126/79; PULSE 89; RESP 16; TEMP 36.1; O2SAT 98
== END 2023-06-21 00:33 | disposition home or self-care (01) ==
PROVIDERS: Emergency Provider Emergency Medicine; Visit Provider Emergency Medicine
DX: S16.1XXA Strain of muscle, fascia and tendon at neck level, initial encounter (principal); M54.12 Radiculopathy, cervical region; V49.50XA Passenger injured in collision with unspecified motor vehicles in traffic accident, initial encounter; Y92.413 State road as the place of occurrence of the external cause; Z59.00 Homelessness unspecified; F17.210 Nicotine dependence, cigarettes, uncomplicated
CPT/HCPCS: 72050; 99282